=== PATIENT | male | born 1940 | race Caucasian/White ===

== ENCOUNTER 2020-01-05 08:01 | Outpatient (CLI) | payer MEDICARE, OTHER ==
[2020-01-06 12:06] LABS: SARS-CoV-2 MS2 Positive; SARS-CoV-2 N Gene Negative; SARS-CoV-2 S Gene Negative; SARS-CoV-2 by NAA Not Detected (NotDetected); SARS-CoV-2 orf1ab Negative
== END 2020-01-05 08:02 | disposition home or self-care (01) ==
LOC: LABBT 08:01
PROVIDERS: ATTEND Neurological Surgery
DX: I72.9 Aneurysm of unspecified site (principal); Z20.828 Contact with and (suspected) exposure to other viral communicable diseases
CPT/HCPCS: 87635; U0003

== ENCOUNTER 2020-01-10 10:11 | Day surgery (SDC) | payer MEDICARE, OTHER ==
[2020-01-09 13:44] VITALS: BMI 24.3
[~2020-01-10 10:11] MED LIST: Iopamidol 370 76% 50 ML VIAL FS ONE
[2020-01-10] MEDS ORDERED: Lidocaine 1% (PF) 30 ML VIAL ONE (10:53)
--- NOTE | 2020-01-17 12:06 | CCLSPC ---
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 INDICATION: Obtain diagnosis. PROCEDURE: Cerebral angiography. ANESTHESIA: Local. TECHNIQUE: The patient was brought into the angiogram suite and placed on table in a supine position. Both groins were prepped and draped in the usual sterile fashion. 1% lidocaine was used to inject the right groin. A 5-[place] micropuncture set was used to gain access to the right common femoral artery. Using a Seldinger technique, the needle was removed, and a 5-[place] was placed. The 5-[place] diagnostic catheter passed over a [employer] guidewire, was then advanced into the aortic arch where the left internal carotid artery was selectively catheterized. An AP and lateral angiogram were performed. The catheter was then removed as was the sheath, and hemostasis was maintained with manual compression. The procedure came to an end without known complication. IMPRESSION: The patient underwent successful single-vessel angiography via the left internal carotid artery. An angiogram of the left internal carotid artery reveals no evidence for aneurysm. It does reveal in the late venous phase what may be a small venous landry near the cortical surface consistent with the area of contrast enhancement on the patient's prior MRI scan. Job ID: [id number]
== END 2020-01-10 14:40 | disposition home or self-care (01) ==
LOC: CCL 10:11
PROVIDERS: ATTEND Neurological Surgery
PROC: B3171ZZ Fluoroscopy of Left Internal Carotid Artery using Low Osmolar Contrast (ICD-10-PCS; principal; 2020-01-10)
DX: I67.1 Cerebral aneurysm, nonruptured (principal); Z79.02 Long term (current) use of antithrombotics/antiplatelets; Z79.82 Long term (current) use of aspirin; Z79.899 Other long term (current) drug therapy; Z88.2 Allergy status to sulfonamides
CPT/HCPCS: 36223; J1644; J2001; Q9967